=== PATIENT | female | born 1940 | race Caucasian/White ===

== ENCOUNTER → 2016-09-19 | Outpatient (CLI) | payer MEDICARE, OTHER | END | disposition short-term general hospital (02) | LOC: CLPHYS 04:05 | DX: G56.13 Other lesions of median nerve, bilateral upper limbs (principal); G56.23 Lesion of ulnar nerve, bilateral upper limbs; M79.641 Pain in right hand; M79.642 Pain in left hand; M79.601 Pain in right arm; M79.602 Pain in left arm ==

== ENCOUNTER → 2016-10-11 | Outpatient (CLI) | payer MEDICARE, OTHER | END | disposition short-term general hospital (02) | LOC: CLORTH 09:16 | DX: G56.03 Carpal tunnel syndrome, bilateral upper limbs (principal); G56.23 Lesion of ulnar nerve, bilateral upper limbs ==

== ENCOUNTER 2016-10-25 07:51 | Day surgery (SDC) | payer MEDICARE, OTHER ==
[~2016-10-25] VITALS: Ht 144.8 cm; Wt 85.3 kg
== END 2016-10-25 12:29 | disposition short-term general hospital (02) ==
LOC: SURGOP 07:51
PROC: 01N50ZZ Release Median Nerve, Open Approach (ICD-10-PCS; principal; 2016-10-25)
DX: G56.01 Carpal tunnel syndrome, right upper limb (principal); I10 Essential (primary) hypertension; E78.5 Hyperlipidemia, unspecified; M54.5 Low back pain; K21.9 Gastro-esophageal reflux disease without esophagitis; Z85.3 Personal history of malignant neoplasm of breast; Z90.49 Acquired absence of other specified parts of digestive tract; Z90.722 Acquired absence of ovaries, bilateral; Z98.890 Other specified postprocedural states
CPT/HCPCS: J0690; J2250; J2795